=== PATIENT | male | born 1950 | race Hispanic/Latino ===

== ENCOUNTER 2022-11-14 02:19 | Inpatient (IN) | payer OTHER ==
[~2022-11-14] VITALS: Ht 167.6 cm; Wt 53.6 kg
[2022-11-14 04:28] LABS: BASOPHILS # (AUTO) 0.01 K/uL (0.00-0.20); BASOPHILS % (AUTO) 0.9 % (0.0-5.0); EOSINOPHILS # (AUTO) 0.02 K/uL (0.00-0.70); EOSINOPHILS % (AUTO) 1.8 % (0.0-8.0); LYMPHOCYTES # (AUTO) 0.4 K/uL (1.0-4.8); LYMPHOCYTES % (AUTO) 32.1 % (21.0-51.0); MEAN CORPUSCULAR HEMOGLOBIN 23.3 pg (27.0-33.0); MEAN CORPUSCULAR HGB CONC 29.6 g/dL (32.0-36.0); MEAN CORPUSCULAR VOLUME 78.8 fL (79-99); MONOCYTES # (AUTO) 0.2 K/uL (0.1-1.0); MONOCYTES % (AUTO) 14.7 % (3.0-13.0); NEUTROPHILS # (AUTO) 0.6 K/uL (1.8-7.7); NEUTROPHILS % (AUTO) 50.5 % (40.0-77.0); PLATELET COUNT (AUTO) 235 K/uL (130-400); RED CELL DISTRIBUTION WIDTH 21.2 % (11.0-15.5)
[2022-11-14] MEDS ORDERED: MORPHINE 4 MG SYG ONE (04:34)
[2022-11-14] MEDS ORDERED: ONDANSETRON 4MG INJ ONE (04:34)
[2022-11-14 04:35] LABS: HEMATOCRIT 18.9 % (42-54); WHITE BLOOD COUNT (AUTO) 1.1 K/uL (4.8-10.8)
[2022-11-14 04:39] LABS: CREATININE 0.7 mg/dL (0.5-1.5); POTASSIUM 4.6 mmol/L (3.5-5.1)
[2022-11-14 04:43] LABS: ALBUMIN 2.2 g/dL (3.5-5.0); BILIRUBIN,TOTAL 0.3 mg/dL (0.2-1.0); MAGNESIUM 1.6 mg/dL (1.80-2.40); TOTAL PROTEIN, SERUM 5.2 g/dL (6.0-8.3)
[2022-11-14] MEDS ORDERED: ONDANSETRON 4MG INJ IVP ONE (05:00)
[2022-11-14] MEDS ORDERED: LACTATED RINGERS 1000ML 1,000 ML IV ONE (05:00)
[2022-11-14] MEDS ORDERED: MORPHINE 4 MG SYG IVP ONE (05:00)
[2022-11-14] MEDS: MAGNESIUM 2GM PREMIX 50ML 50 ML IV SCH (05:18)
[2022-11-14] MEDS ORDERED: ALBUTEROL INHALER 90MCG/INH IH PRN (06:30)
[2022-11-14 07:03] LABS: SARS-CoV-2, RNA, NAAT NEGATIVE SARS CoV-2 (NEGATIVE)
[2022-11-14 07:08] LABS: INFLUENZA TYPE A Negative For Type A (NEGATIVE); INFLUENZA TYPE B Negative For Type B (NEGATIVE)
[2022-11-14 09:30] LABS: APPEARANCE,URINE CLEAR (CLEAR); BILIRUBIN,URINE NEGATIVE (NEGATIVE); GLUCOSE, URINE (UA) NEGATIVE (NEGATIVE); KETONES,URINE NEGATIVE (NEGATIVE); LEUKOCYTE ESTERASE ,URINE NEGATIVE Leu/uL (NEGATIVE); NITRATE,URINE 2+ (NEGATIVE); OCCULT BLOOD,URINE NEGATIVE (NEGATIVE); PH,URINE 6.5 (5.0-8.0); PROTEIN,URINE NEGATIVE (NEGATIVE); UROBILINOGEN,URINE 0.2 mg/dL (0.2-1.0)
[2022-11-14 09:35] LABS: ADD UA MICROSCOPIC YES; COLOR,URINE YELLOW (YELLOW)
[2022-11-14 09:41] LABS: BACTERIA,URINE FEW /HPF (None Seen); MUCUS,URINE RARE LPF (None Seen); RBC,URINE 0-1 /HPF (0-1); SQUAMOUS EPITHELIAL CELL,UR RARE /HPF (0-2)
[2022-11-14 09:54] LABS: HEMATOCRIT 24.4 % (42-54)
[2022-11-14] MEDS: LACTATED RINGERS 1000ML 1,000 ML IV SCH ×2 (10:13→20:36)
[2022-11-14] MEDS: PANTOPRAZOLE 40 MG/VIAL IVP SCH ×2 (10:13→21:22)
[2022-11-14 16:06] LABS: HEMATOCRIT 23.6 % (42-54)
[2022-11-14 22:24] LABS: HEMATOCRIT 24.2 % (42-54)
[2022-11-14] MEDS ORDERED: ACETAMINOPHEN 650 MG SUPPOSITORY RC PRN (22:30)
[2022-11-14] MEDS ORDERED: POTASSIUM CHLORIDE 20MEQ/100ML 100 ML IV PRN ×2 (22:30)
[2022-11-14] MEDS ORDERED: ONDANSETRON 4MG INJ IVP PRN (22:30)
[2022-11-14] MEDS ORDERED: ACETAMINOPHEN 325 MG TAB PO PRN (22:30)
[2022-11-14] MEDS ORDERED: GLUCAGON 1MG KIT 1 MG ML IM PRN (22:30)
[2022-11-14] MEDS ORDERED: DEXTROSE 50%-WATER 50 ML DISP.SYRIN IV PRN (22:30)
[2022-11-14] MEDS ORDERED: POTASSIUM CHLORIDE 10% ELIXIR 20 MEQ/15 ML UDCUP PO PRN (22:30)
[2022-11-14] MEDS: ZOSYN 3.375GM +NS 50ML IVPB SCH (23:28)
[2022-11-14] MEDS ORDERED: 0.9%NACL 50ML IV SCH (23:59)
[2022-11-15] VITALS (7 sets, daily range): BP systolic 85–112; BP diastolic 46–62; PULSE 64–78; RESP 16–18; O2SAT 100
[2022-11-15] MEDS ORDERED: PANT40TA55 PO (02:41)
[2022-11-15] MEDS ORDERED: ATEN25TA PO (02:42)
[2022-11-15] MEDS ORDERED: HEPARIN 5,000 UNIT VIAL SQ PRN (04:00)
[2022-11-15 04:09] LABS: EOSINOPHILS # (AUTO) 0.01 K/uL (0.00-0.70); EOSINOPHILS % (AUTO) 1.3 % (0.0-8.0); HEMATOCRIT 24.7 % (42-54); IMMATURE GRANULOCYTE ABSOLUTE 0.01 K/uL (0-1); LYMPHOCYTES # (AUTO) 0.2 K/uL (1.0-4.8); LYMPHOCYTES % (AUTO) 27.6 % (21.0-51.0); MEAN CORPUSCULAR HEMOGLOBIN 23.9 pg (27.0-33.0); MEAN CORPUSCULAR HGB CONC 29.6 g/dL (32.0-36.0); MEAN CORPUSCULAR VOLUME 80.7 fL (79-99); MONOCYTES # (AUTO) 0.2 K/uL (0.1-1.0); MONOCYTES % (AUTO) 31.6 % (3.0-13.0); NEUTROPHILS # (AUTO) 0.3 K/uL (1.8-7.7); NEUTROPHILS % (AUTO) 38.2 % (40.0-77.0); PLATELET COUNT (AUTO) 242 K/uL (130-400); RED BLOOD CELL COUNT(AUTO) 3.06 MIL/uL (4.50-6.20); RED CELL DISTRIBUTION WIDTH 20.7 % (11.0-15.5)
[2022-11-15 04:22] LABS: WHITE BLOOD COUNT (AUTO) 0.8 K/uL (4.8-10.8)
[2022-11-15 04:40] LABS: ALBUMIN 2.2 g/dL (3.5-5.0); BILIRUBIN,TOTAL 0.8 mg/dL (0.2-1.0); CREATININE 0.8 mg/dL (0.5-1.5); MAGNESIUM 1.9 mg/dL (1.80-2.40); POTASSIUM 4.5 mmol/L (3.5-5.1); THYROID STIMULATING HORMONE 2.14 uIU/mL (0.36-3.74); TOTAL PROTEIN, SERUM 5.9 g/dL (6.0-8.3)
[2022-11-15] MEDS: HEPARIN 25,000 UNITS/250ML D5W 250 ML IV SCH ×2 (04:53→10:00)
[2022-11-15] MEDS: ZOSYN 3.375GM +NS 50ML IVPB SCH ×3 (05:19→21:57)
[2022-11-15] MEDS ORDERED: IRON SUCROSE COMPLEX 300 MG in 0.9% NACL 250ML 250 ML IV ONE (09:00)
[2022-11-15 09:45] LABS: HEMATOCRIT 22.6 % (42-54)
[2022-11-15] MEDS: LACTATED RINGERS 1000ML 1,000 ML IV SCH ×2 (09:59→18:30)
[2022-11-15] MEDS: PANTOPRAZOLE 40 MG/VIAL IVP SCH ×2 (09:59→20:05)
[2022-11-15 19:12] LABS: HEMATOCRIT 25.1 % (42-54)
[2022-11-15 21:32] LABS: HEMATOCRIT 24.5 % (42-54)
[2022-11-16] VITALS (17 sets, daily range): BP systolic 84–94; BP diastolic 47–61; PULSE 58–76; RESP 15–18; O2SAT 100
[2022-11-16] MEDS: LACTATED RINGERS 1000ML 1,000 ML IV SCH ×2 (04:27→14:30)
[2022-11-16 05:28] LABS: BASOPHILS # (AUTO) 0.01 K/uL (0.00-0.20); BASOPHILS % (AUTO) 1.3 % (0.0-5.0); EOSINOPHILS # (AUTO) 0.06 K/uL (0.00-0.70); EOSINOPHILS % (AUTO) 7.9 % (0.0-8.0); HEMATOCRIT 26.7 % (42-54); IMMATURE GRANULOCYTE ABSOLUTE 0.01 K/uL (0-1); LYMPHOCYTES # (AUTO) 0.3 K/uL (1.0-4.8); LYMPHOCYTES % (AUTO) 40.8 % (21.0-51.0); MEAN CORPUSCULAR HEMOGLOBIN 25.4 pg (27.0-33.0); MEAN CORPUSCULAR HGB CONC 30.7 g/dL (32.0-36.0); MEAN CORPUSCULAR VOLUME 82.7 fL (79-99); MONOCYTES # (AUTO) 0.3 K/uL (0.1-1.0); MONOCYTES % (AUTO) 34.2 % (3.0-13.0); NEUTROPHILS # (AUTO) 0.1 K/uL (1.8-7.7); NEUTROPHILS % (AUTO) 14.5 % (40.0-77.0); PLATELET COUNT (AUTO) 200 K/uL (130-400); RED BLOOD CELL COUNT(AUTO) 3.23 MIL/uL (4.50-6.20); RED CELL DISTRIBUTION WIDTH 19.9 % (11.0-15.5)
[2022-11-16] MEDS: ZOSYN 3.375GM +NS 50ML IVPB SCH ×3 (05:35→20:55)
[2022-11-16 05:39] LABS: WHITE BLOOD COUNT (AUTO) 0.8 K/uL (4.8-10.8)
[2022-11-16 06:51] LABS: BILIRUBIN,TOTAL 0.8 mg/dL (0.2-1.0); MAGNESIUM 1.7 mg/dL (1.80-2.40); POTASSIUM 3.5 mmol/L (3.5-5.1); TOTAL PROTEIN, SERUM 5.5 g/dL (6.0-8.3)
[2022-11-16 07:04] LABS: CREATININE 0.6 mg/dL (0.5-1.5)
[2022-11-16 08:26] LABS: HEMATOCRIT 25.5 % (42-54)
[2022-11-16] MEDS: PANTOPRAZOLE 40 MG/VIAL IVP SCH ×2 (08:52→20:54)
[2022-11-16] MEDS: MAGNESIUM 2GM PREMIX 50ML 50 ML IV SCH (08:52)
[2022-11-16] MEDS ORDERED: IOHEXOL-350 50ML VIAL IV ONE (11:12)
[2022-11-16] MEDS ORDERED: LIDOCAINE HCL 1% MDV 50ML VIAL ONE (11:12)
[2022-11-16] MEDS: MIDODRINE HCL 5 MG TABLET PO SCH ×2 (14:45→20:55)
[2022-11-16] MEDS: KCL 20 MEQ ERTAB PO PRN (20:55)
[2022-11-17 04:10] VITALS: BP 95/55; PULSE 73; RESP 17
[2022-11-17] MEDS: ZOSYN 3.375GM +NS 50ML IVPB SCH ×3 (04:10→22:35)
[2022-11-17] MEDS: LACTATED RINGERS 1000ML 1,000 ML IV SCH ×3 (04:10→19:47)
[2022-11-17 04:47] LABS: BASOPHILS # (AUTO) 0.01 K/uL (0.00-0.20); BASOPHILS % (AUTO) 1.1 % (0.0-5.0); EOSINOPHILS # (AUTO) 0.07 K/uL (0.00-0.70); EOSINOPHILS % (AUTO) 7.6 % (0.0-8.0); HEMATOCRIT 25.7 % (42-54); IMMATURE GRANULOCYTE ABSOLUTE 0.03 K/uL (0-1); LYMPHOCYTES # (AUTO) 0.3 K/uL (1.0-4.8); LYMPHOCYTES % (AUTO) 27.2 % (21.0-51.0); MEAN CORPUSCULAR HEMOGLOBIN 24.8 pg (27.0-33.0); MEAN CORPUSCULAR HGB CONC 30.4 g/dL (32.0-36.0); MEAN CORPUSCULAR VOLUME 81.8 fL (79-99); MONOCYTES # (AUTO) 0.4 K/uL (0.1-1.0); MONOCYTES % (AUTO) 43.5 % (3.0-13.0); NEUTROPHILS # (AUTO) 0.2 K/uL (1.8-7.7); NEUTROPHILS % (AUTO) 17.3 % (40.0-77.0); PLATELET COUNT (AUTO) 308 K/uL (130-400); RED BLOOD CELL COUNT(AUTO) 3.14 MIL/uL (4.50-6.20); RED CELL DISTRIBUTION WIDTH 20.1 % (11.0-15.5)
[2022-11-17 05:04] LABS: ALBUMIN 1.9 g/dL (3.5-5.0); BILIRUBIN,TOTAL 0.5 mg/dL (0.2-1.0); CREATININE 0.8 mg/dL (0.5-1.5); POTASSIUM 3.8 mmol/L (3.5-5.1); TOTAL PROTEIN, SERUM 5.3 g/dL (6.0-8.3)
[2022-11-17 05:08] LABS: WHITE BLOOD COUNT (AUTO) 0.9 K/uL (4.8-10.8)
[2022-11-17] MEDS: KCL 20 MEQ ERTAB PO PRN ×3 (06:05→20:21)
[2022-11-17 08:00] VITALS: BP 97/54; PULSE 72; RESP 16; O2SAT 99
[2022-11-17] MEDS: MIDODRINE HCL 5 MG TABLET PO SCH ×3 (08:59→19:46)
[2022-11-17] MEDS: PANTOPRAZOLE 40 MG/VIAL IVP SCH ×2 (08:59→19:46)
[2022-11-17 11:50] VITALS: BP 82/57; PULSE 75; RESP 16
[2022-11-17] MEDS ORDERED: TBO-FILGRASTIM 300 MCG/0.5 ML ML SQ SCH (13:45)
[2022-11-17 16:00] VITALS: BP 97/49; PULSE 75; RESP 18
[2022-11-17 19:45] VITALS: BP 116/87; PULSE 83; RESP 18
[2022-11-17 23:07] VITALS: BP 100/56; PULSE 86; RESP 18
[2022-11-18 04:14] LABS: HEMATOCRIT 27.9 % (42-54); MEAN CORPUSCULAR HGB CONC 30.5 g/dL (32.0-36.0); MEAN CORPUSCULAR VOLUME 82.1 fL (79-99); NUCLEATED RED BLOOD CELLS 0.5 % (0.0-0.19); RED BLOOD CELL COUNT(AUTO) 3.4 MIL/uL (4.50-6.20); RED CELL DISTRIBUTION WIDTH 20.4 % (11.0-15.5)
[2022-11-18 04:21] VITALS: BP 98/57; PULSE 78; RESP 18
[2022-11-18 04:31] LABS: CREATININE 0.8 mg/dL (0.5-1.5); MAGNESIUM 1.9 mg/dL (1.80-2.40); POTASSIUM 4.9 mmol/L (3.5-5.1)
[2022-11-18] MEDS: MAGNESIUM 2GM PREMIX 50ML 50 ML IV PRN ×2 (05:07→11:52)
[2022-11-18] MEDS: LACTATED RINGERS 1000ML 1,000 ML IV SCH (06:01)
[2022-11-18] MEDS: ZOSYN 3.375GM +NS 50ML IVPB SCH (06:01)
[2022-11-18 08:00] VITALS: BP 98/58; PULSE 81; RESP 16; O2SAT 99
[2022-11-18] MEDS: PANTOPRAZOLE 40 MG/VIAL IVP SCH (08:42)
[2022-11-18] MEDS: MIDODRINE HCL 5 MG TABLET PO SCH ×2 (08:42→14:04)
[2022-11-18 11:41] VITALS: BP 81/53; PULSE 72; RESP 16
[2022-11-18 11:49] VITALS: BP 97/57
[2022-11-18] MEDS ORDERED: Midodrine Hcl PO (13:18)
[2022-11-18] MEDS ORDERED: TBO-FILGRASTIM 300 MCG/0.5 ML ML SQ SCH (13:45)
[2022-11-18 16:00] VITALS: BP 86/55; PULSE 74; RESP 16
[2022-11-19] MEDS ORDERED: PANTOPRAZOLE 40 MG TAB DR PO SCH (09:00)
== END 2022-11-18 19:30 | disposition home or self-care (01) | DRG 374 ==
LOC: EDH 02:19 → OBSVTOIN 06:01 → EDHIP 06:01 → UNDOADMOB 06:09 → EDHIP 06:09 → 4AH 11-15 01:35
PROVIDERS: ADMIT Internal Medicine; ATTEND Internal Medicine
PROC: 30233N1 Transfusion of Nonautologous Red Blood Cells into Peripheral Vein, Percutaneous Approach (ICD-10-PCS; 2022-11-15)
PROC: 06H03DZ Insertion of Intraluminal Device into Inferior Vena Cava, Percutaneous Approach (ICD-10-PCS; principal; 2022-11-16)
DX: C16.9 Malignant neoplasm of stomach, unspecified (principal); D61.810 Antineoplastic chemotherapy induced pancytopenia; I82.431 Acute embolism and thrombosis of right popliteal vein; K92.2 Gastrointestinal hemorrhage, unspecified; R64 Cachexia; E83.42 Hypomagnesemia; Z20.822 Contact with and (suspected) exposure to COVID-19; T45.1X5A Adverse effect of antineoplastic and immunosuppressive drugs, initial encounter; D70.9 Neutropenia, unspecified; K21.9 Gastro-esophageal reflux disease without esophagitis; D63.8 Anemia in other chronic diseases classified elsewhere; E78.5 Hyperlipidemia, unspecified; Y92.89 Other specified places as the place of occurrence of the external cause
CPT/HCPCS: 36415; 36430; 37191; 71045; 74176; 80048; 80053; 81001; 82270; 82330; 82550; 83540; 83550; 83690; 83735; 83880; 84145; 84443; 84484; 85007; 85014; 85018; 85025; 85027; 85730; 86850; 86900; 86901; 86923; 87077; 87088; 87186; 87635; 87804; 93005; 93970; 97039; C1769; C9113; G0378; J1644; J1756; J2270; J2405; J2543; J3475; J3490; J7050; P9016; Q9967; C1880; C1894; J1447